=== PATIENT | male | born 1995 | race African-American/Black ===

== ENCOUNTER 2017-02-19 20:06 | Emergency (ER) | payer SELFPAY ==
[~2017-02-19] VITALS: Ht 177.8 cm; Wt 72.4 kg
[2017-02-19 20:27] VITALS: TEMP 36.9; Ht 177.8 cm; Wt 72.4 kg
[2017-02-19] MEDS ORDERED: LIDOCAINE/EPINEPHRINE 1% 20 ML VIAL INFIL ONE (21:45)
[2017-02-19] MEDS ORDERED: CEPHALEXIN 500MG HOME PACK 1 EA BTL PO ONE (23:00)
[2017-02-19] MEDS ORDERED: CEPH500C PO (23:03)
--- NOTE | 2017-02-19 23:03 | EMERGENCY ROOM VISIT NOTE ---
ED Visit Note First contact with patient: 20:50 CHIEF COMPLAINT: Hand laceration HISTORY OF PRESENT ILLNESS: This 21-year-old male patient presents to the emergency department ambulatory after cutting the left hand while washing dishes. The patient states that he sliced his hand with a knife while washing dishes. There was very little bleeding. Denies weakness or numbness of the hand or fingers. The patient rates the pain as sharp and and 7/10. The patient denies any other injuries. The patient's Tetanus shot is up to date. REVIEW OF SYSTEMS: A 6 system review of systems was completed with positives and pertinent negatives listed in the HPI. ALLERGIES: No known drug allergies MEDICATIONS: No chronic medications PMH: No significant past medical history SOCIAL HISTORY: The patient is a [employer] student and lives with roommates. Nonsmoker, admits to occasional alcohol use. PHYSICAL EXAM: Vital Signs: Reviewed Nurse's notes, vital signs stable. GENERAL : This is a 21-year-old male, in no acute distress, well-developed, well- nourished. SKIN: There is a 5 cm long laceration on the palmar aspect of the left hand, just proximal to the thumb. The edges gape apart with traction. There is no foreign material in the wound and it looks clean. There is no active bleeding. The laceration just punctures the joint capsule, but there are no obvious tendon injuries. Normal strength and movement of the fingers and wrist. Capillary refill less than 2 seconds. Normal sensation to light and sharp touch. EMERGENCY DEPARTMENT COURSE: I examined the patient. Verbal consent was obtained to perform the procedure. Using sterile technique the wound was cleansed with Betadine. The area was sterilely draped. 7 ml of 1% buffered lidocaine with epinephrine was used to anesthetize the laceration on the hand. Once the patient was anesthetized, the wound was copiously irrigated under pressure with sterile saline. The wound was explored and was as described above. The laceration was repaired using 3 simple interrupted 5-0 Vicryl sutures and 10 simple interrupted 5-0 nylon sutures with the wound edges being well approximated. The patient tolerated the procedure well. Hemostasis was achieved. The area was cleaned with sterile saline and dressed with bacitracin ointment and bandage. The patient will be placed on Keflex since the laceration did puncture the joint capsule. The patient was discharged home in good condition. DIAGNOSIS: Hand laceration Current/Historical Medications Scheduled Cephalexin Monohydrate (Keflex), 500 MG PO QID Allergies Coded Allergies: No Known Allergies (Unverified , 02/19/17) Vital Signs Date Time Temp Pulse Resp B/P (MAP) Pulse Ox O2 Delivery O2 Flow Rate FiO2 02/19/17 23:10 62 16 131/77 98 Room Air 02/19/17 20:27 36.9 71 18 138/88 98 Room Air Medications Administered Medications (Trade) Dose Ordered Sig/Doug Route Start Time Stop Time Status Last Admin Dose Admin Cephalexin Monohydrate (Keflex 500MG Home Pack) 1 homepack NOW ONCE PO 02/19/17 23:00 02/19/17 23:02 DC 02/19/17 23:09 1 HOMEPACK Departure Information Impression Primary Impression: Hand laceration Dispostion Home / Self-Care Condition GOOD Prescriptions Cephalexin Monohydrate (Keflex) 500 Mg Cap 500 MG PO QID for 6 Days, #24 CAP Prov: Naomi Kevin ., ROMINA 02/19/17 Referrals No Doctor, Assigned (PCP) Patient Instructions My [facility] Additional Instructions You were prescribed Keflex to be taken 4 times daily for a total of 7 days. This is an antibiotic. All antibiotics have the potential to cause diarrhea. Stop this medication and contact a medical provider if you were to develop any significant adverse side effects including: wheezing, shortness of breath, passing out, vomiting, or a diffuse rash. Always take antibiotics as directed and COMPLETE the ENTIRE course regardless of the improvement of your symptoms. You have received 10 sutures on your left hand. These sutures are NOT dissolvable and WILL need to be removed by a health care provider in 12-14 days. You can return to the Emergency Department or contact your Primary Care Provider to have the sutures removed. Proper wound care is essential for adequate wound healing and infection prevention. You can shower and clean the wound with soap and water. Do not scour over the wound, pat dry with a towel. Do not submerse the wound (i.e. bathe or dish wash) until the sutures have been removed. You can use an antibiotic ointment with a dressing over the wound for the next 3-4 days. After this time you may leave the wound dry and open to the air. If crust develops over the wound you can use a Q-tip to apply a 1:1 peroxide:water solution to clean the wound. Look for signs of infection of the wound including: increased pain, swelling, foul discharge, streaking, or increased temperature. If any of these are noticed you should return to the Emergency Department for further assessment and treatment. As with any laceration you may have received nerve damage to the surrounding tissues. This damage may or may not be permanent. You should keep the area covered with sunscreen for the first 6 months to 1 year when at risk for exposure to help minimize scarring. You can also use scar reducing creams or Vitamin E oil to help minimize scarring. For pain control, you can use the following toaf-phj-wetxwlx medicines (if >12 yo): - Regular strength (325mg/tab) Tylenol (acetaminophen) 2 tabs every 4-6 hours as needed. Do not exceed 12 tablets in a 24 hour period. Avoid taking more than 4 grams (4000 mg) of Tylenol per day. This includes any other sources of acetaminophen you may take on a regular basis. - Regular strength (200 mg/tab) Advil (ibuprofen) 1-2 tabs every 4-6 hours as needed. Do not exceed a dose of 3200 mg per day. Return to the emergency department if your symptoms worsen despite treatment course outlined above. Problem Qualifiers Primary Impression: Hand laceration Encounter type: initial encounter Foreign body presence: without foreign body Laterality: left Qualified Codes: S61.412A - Laceration without foreign body of left hand, initial encounter
[2017-02-19 23:10] VITALS: BP 131/77; PULSE 62; O2SAT 98
== END 2017-02-19 23:15 | disposition home or self-care (01) ==
LOC: C.EDB 20:07 → C.EDD 23:15
DX: S61.412A Laceration without foreign body of left hand, initial encounter (principal); W26.0XXA Contact with knife, initial encounter; Y93.G1 Activity, food preparation and clean up

== ENCOUNTER 2017-03-09 16:50 | Emergency (ER) | payer SELFPAY ==
[~2017-03-09] VITALS: Ht 177.8 cm; Wt 92.1 kg
[2017-03-09 16:54] VITALS: TEMP 37.1; Ht 177.8 cm; Wt 92.1 kg
[2017-03-09] MEDS ORDERED: CEFTRIAXONE SOD INJ 1 GM ADDVIAL IV STA (17:09)
[2017-03-09] MEDS ORDERED: XYLOCAINE 1%/SOD BICARB 20 ML VIAL INFIL ONE (17:15)
[2017-03-09] MEDS ORDERED: SULFAMETHOXAZOLE/TRIMETHOPRIM DS 800/160MG TAB PO STA (17:16)
[2017-03-09 17:28] LABS: BASO % 0.4 %; BASO ABS # 0.04 K/uL (0-0.2); COMPLETE YES; EOS % 3.3 %; HEMATOCRIT 44.4 % (42-52); IG% 0.2 %; LYMPH % 19.1 %; LYMPH ABS # 1.92 K/uL (1.2-3.4); MEAN CELL VOLUME 84.1 fL (80-100); MEAN CORPUSCULAR HEMOGLOBIN 29.4 pg (25-34); MEAN CORPUSCULAR HGB CONC 34.9 g/dl (32-36); MEAN PLATELET VOLUME 9.1 fL (7.4-10.4); MONO % 9.2 %; NEUT % 67.8 %; PLATELET COUNT 284 K/uL (130-400); RED BLOOD COUNT 5.28 M/uL (4.7-6.1); WHITE BLOOD COUNT 10.04 K/uL (4.8-10.8)
[2017-03-09 17:42] LABS: BUN/CREATININE RATIO 11.4 (10-20); CALCIUM 9.2 mg/dl (8.5-10.1); CREATININE 1.2 mg/dl (0.60-1.40); POTASSIUM 3.7 mmol/L (3.5-5.1)
[2017-03-09] MEDS ORDERED: CEPH500C PO (17:57)
[2017-03-09] MEDS ORDERED: SULF800T23 PO (17:57)
[2017-03-09 18:23] VITALS: BP 156/85; PULSE 88; O2SAT 98
--- NOTE | 2017-03-09 20:23 | EMERGENCY ROOM VISIT NOTE ---
History First contact with patient: 17:03 Chief Complaint: WOUND RECHECK Stated Complaint: STICHES ON HAND, CHECK Nursing Triage Summary: Pt cut hand 3 weeks ago, had dissolvable sutures placed, here for wound recheck because he thinks the incision might be infected. Left hand incision hot to the touch, hardened, itchy, and painful. Pt verbalizes he saw a little bit of puss coming from incision. Denies fevers at home. History of Present Illness The patient is a 22 year old male who presents to the Emergency Room with complaints of a possible left hand infection. The patient reports that he cut his hand approximately 3 weeks ago, and was seen in our emergency department for suture repair. The patient has not had his sutures removed. He reports that over the past 24 hours, he has noticed redness, swelling and purulent drainage from the wound. He denies any red streaks, significant worsening pain , fevers or chills.. The patient is uwtjr-vznp-yrjfnhes. He rated his discomfort a 3 out of 10 on my exam, but rated his pain a 7 out of 10 in triage. Review of Systems 10 system review was performed and was negative except for pertinent positives and negatives as indicated in history of present illness Past Medical/Surgical History Medical Problems: (1) No significant past medical history Surgical Problems: (1) No history of previous surgery Family History No significant family history Social History Smoking Status: Never Smoker Alcohol Use: occasionally Marital Status: single Housing Status: lives alone Occupation Status: [employer] student Current/Historical Medications Scheduled Cephalexin Monohydrate (Keflex), 500 MG PO QID Sulfa/Trimethoprim (Bactrim Ds 800MG/160MG), 1 TAB PO BID Physical Exam Vital Signs Date Time Temp Pulse Resp B/P (MAP) Pulse Ox O2 Delivery O2 Flow Rate FiO2 03/09/17 18:23 88 18 156/85 98 03/09/17 16:54 37.1 92 18 135/73 94 Room Air Physical Exam CONSTITUTIONAL: Healthy and well nourished. Alert and oriented X 3 with positive affect. HEENT: Normocephalic, atraumatic. Pupils equal, round and reactive. NECK: Full active range of motion without discomfort. RESPIRATORY: Clear to auscultation bilaterally with no wheezing, crackles, rhonchi or stridor. CARDIOVASCULAR: Regular rate and rhythm with no murmurs, rubs or gallops. MUSCULOSKELETAL: Examination of the left hand shows intact sutures. He has notable erythema and edema of the thenar eminence, and an area of purulent collection near the distal portion of the laceration. There is mild fluctuance and minimal purulent drainage. Patient has no tenderness to palpation through the volar wrist region. Capillary refill of the thumb is less then 2 seconds. INTEGUMENTARY: No rash or other significant dermatologic conditions noted. NEUROLOGIC: Left hand and fingers are sensory intact. Medical Decision & Procedures Laboratory Results 03/09/17 17:15 Red Blood Count 5.28, Mean Corpuscular Volume 84.1, Mean Corpuscular Hemoglobin 29.4, Mean Corpuscular Hemoglobin Concent 34.9, Mean Platelet Volume 9.1, Neutrophils (%) (Auto) 67.8, Lymphocytes (%) (Auto) 19.1, Monocytes (%) (Auto) 9.2, Eosinophils (%) (Auto) 3.3, Basophils (%) (Auto) 0.4, Neutrophils # (Auto) 6.81, Lymphocytes # (Auto) 1.92, Monocytes # (Auto) 0.92, Eosinophils # (Auto) 0.33, Basophils # (Auto) 0.04 03/09/17 17:15 Test 03/09/17 17:15 White Blood Count 10.04 K/uL (4.8-10.8) Red Blood Count 5.28 M/uL (4.7-6.1) Hemoglobin 15.5 g/dL (14.0-18.0) Hematocrit 44.4 % (42-52) Mean Corpuscular Volume 84.1 fL (80-100) Mean Corpuscular Hemoglobin 29.4 pg (25-34) Mean Corpuscular Hemoglobin Concent 34.9 g/dl (32-36) Platelet Count 284 K/uL (130-400) Mean Platelet Volume 9.1 fL (7.4-10.4) Neutrophils (%) (Auto) 67.8 % Lymphocytes (%) (Auto) 19.1 % Monocytes (%) (Auto) 9.2 % Eosinophils (%) (Auto) 3.3 % Basophils (%) (Auto) 0.4 % Neutrophils # (Auto) 6.81 K/uL (1.4-6.5) Lymphocytes # (Auto) 1.92 K/uL (1.2-3.4) Monocytes # (Auto) 0.92 K/uL (0.11-0.59) Eosinophils # (Auto) 0.33 K/uL (0-0.5) Basophils # (Auto) 0.04 K/uL (0-0.2) RDW Standard Deviation 39.3 fL (36.4-46.3) RDW Coefficient of Variation 12.9 % (11.5-14.5) Immature Granulocyte % (Auto) 0.2 % Immature Granulocyte # (Auto) 0.02 K/uL (0.00-0.02) Anion Gap 2.0 mmol/L (3-11) Est Creatinine Clear Calc Drug Dose 112.0 ml/min Estimated GFR () 100.3 Estimated GFR (Non- 86.5 BUN/Creatinine Ratio 11.4 (10-20) Calcium Level 9.2 mg/dl (8.5-10.1) The above labs were reviewed, and were grossly normal. Medications Administered Medications (Trade) Dose Ordered Sig/Duog Route Start Time Stop Time Status Last Admin Dose Admin Ceftriaxone Sodium (Rocephin Inj) 1 gm NOW STAT IV 03/09/17 17:09 03/09/17 17:11 DC 03/09/17 17:21 1 GM Trimethoprim/ Sulfamethoxazole (Septra Ds 800/ 160MG Tab) 1 tab NOW STAT PO 03/09/17 17:16 03/09/17 17:17 DC 03/09/17 17:21 1 TAB Procedure IV antibiotics: Ancef 1 g IV infusion PROCEDURE NOTE: Patient provided consent for I&D under local anesthesia. The area were I&D was planned was painted with iodine and allowed to dry. Sterile field was created. Using buffered 1% lidocaine without epinephrine, good local anesthesia was administered. Using a #11 scalpel, a small incision was made with approximately 0.5 mL of purulent drainage. Cultures were collected. The wound was irrigated, then a bacitracin dressing was applied. Proximal sutures were removed, but remaining sutures around the site of infection was left intact. ED Course Patient history and physical exam were performed. Nurse's notes were reviewed. Vital signs were reviewed and were normal. I did recommend IV antibiotics given the extent of the infection in the hand, and the patient was in agreement. IV access was established, and labs were drawn. The patient was administered Rocephin 1 g IV infusion, and Bactrim DS orally. The proximal sutures were removed. I did perform an I&D of the wound with cultures collected. Labs were also reviewed and normal. The patient was encouraged to return in 24 hours for a wound recheck. He was provided prescriptions for Keflex and Bactrim DS. The patient denies any prior history of antibiotic resistant infections. He was instructed to return to the emergency department sooner for any significant worsening redness, swelling, pain, red streaks or fever. The patient was happy with plan of care, and voiced understanding of all discharge instructions. Medical Decision Medication Reconcilliation Current Medication List: was personally reviewed by me Blood Pressure Screening Patient's blood pressure: Normal blood pressure Impression Primary Impression: Abscess of left hand Additional Impression: Encounter for removal of sutures Departure Information Prescriptions Sulfa/Trimethoprim (Bactrim Ds 800MG/160MG) Tab 1 TAB PO BID for 7 Days, #14 TAB Prov: Joselito Cruz PA 03/09/17 Cephalexin Monohydrate (Keflex) 500 Mg Cap 500 MG PO QID for 7 Days, #28 CAP Prov: Joselito Cruz PA 03/09/17 Referrals No Doctor, Assigned (PCP) Patient Instructions My [facility] Problem Qualifiers
--- NOTE | 2017-03-11 12:31 | Pharmacy Progress Note ---
ED Pharmacist Culture FollowUp Date of Service: Mar 11, 2017. Patient was sent home with a prescription for Keflex 500mg PO QID x 7 days and Bactrim DS 1 PO BID x 7 days for L hand wound infxn Preliminary cx results are growing: Staph Aureus and Grp A Strep. Current empiric therapy is appropriate at this time pending final sensitivities.
== END 2017-03-09 18:24 | disposition home or self-care (01) ==
LOC: C.EDB 16:53 → C.EDC 18:24
DX: L02.512 Cutaneous abscess of left hand (principal); S61.402D Unspecified open wound of left hand, subsequent encounter; X58.XXXD Exposure to other specified factors, subsequent encounter

== ENCOUNTER 2017-03-10 23:17 | Emergency (ER) | payer SELFPAY ==
[~2017-03-10] VITALS: Ht 177.8 cm; Wt 91.1 kg
[~2017-03-10 23:17] MED LIST: CEPH500C PO; SULF800T23 PO
[2017-03-10 23:22] VITALS: Ht 177.8 cm; Wt 91.1 kg
[2017-03-10 23:45] VITALS: BP 162/74; PULSE 78; TEMP 36.9; O2SAT 98
--- NOTE | 2017-03-10 23:45 | EMERGENCY ROOM VISIT NOTE ---
History First contact with patient: 23:21 Chief Complaint: HAND PAIN/INJURY Stated Complaint: SWELLING TO LEFT HAND History of Present Illness The patient is a 22 year old male who presents to the Emergency Room for a recheck of a left hand abscess. I saw the patient yesterday and performed an I& D procedure. He also had a partial suture removal performed. The patient reports that the redness appears better, but still has persistent swelling. He denies any paresthesias or numbness of the hand or fingers. He denies any fevers or chills. He has been taking his Keflex and Bactrim DS antibiotics as prescribed and currently denies any pain. Review of Systems 6 system review was performed and was negative except for pertinent positives and negatives as indicated in history of present illness Past Medical/Surgical History Medical Problems: (1) No significant past medical history Surgical Problems: (1) No history of previous surgery Family History No significant family history Social History Smoking Status: Never Smoker Alcohol Use: occasionally Marital Status: single Housing Status: lives alone Occupation Status: [employer] student Current/Historical Medications Scheduled Cephalexin Monohydrate (Keflex), 500 MG PO QID Sulfa/Trimethoprim (Bactrim Ds 800MG/160MG), 1 TAB PO BID Physical Exam Vital Signs Date Time Temp Pulse Resp B/P (MAP) Pulse Ox O2 Delivery O2 Flow Rate FiO2 03/10/17 23:22 36.9 78 18 162/74 98 Room Air Physical Exam MUSCULOSKELETAL: Examination of the left hand does improved erythema intensity with persistent edema of the thenar eminence. There is minimal drainage in the webspace between the thumb and index finger. No additional purulence could be expressed. The patient has no worsening pain with flexion or extension of the thumb or index finger. Capillary refill is less than 2 seconds. NEUROLOGIC: Left hand and fingers are sensory intact. Medical Decision & Procedures ED Course Patient history and physical exam were performed. Nurse's notes were reviewed. Vital signs were reviewed and were normal. Review of preliminary cultures shows moderate group A beta strep. This should be well covered by Keflex. The patient was encouraged to keep the opening of the wound covered with an antibiotic ointment and dressing. He was instructed to complete all Keflex and Bactrim DS antibiotics as previously prescribed. He was encouraged to return in 3-5 days for wound recheck and possible suture removal. He was also instructed to return sooner for any progressively worsening swelling, redness, pain, red streaks or fever. The patient was happy with plan of care, and voiced understanding of all discharge instructions. Medical Decision Blood Pressure Screening Patient's blood pressure: Normal blood pressure Impression Primary Impression: Cellulitis of left hand Departure Information Referrals No Doctor, Assigned (PCP) Patient Instructions [facility]
== END 2017-03-10 23:46 | disposition home or self-care (01) ==
LOC: C.EDB 23:19 → C.EDA 23:46
DX: L03.114 Cellulitis of left upper limb (principal)